=== PATIENT | male | born 1970 | race Asian ===

== ENCOUNTER 2018-10-25 12:15 | Emergency (ER) | payer BC ==
[2018-10-25 12:20] VITALS: BP 139/95
[2018-10-25] MEDS ORDERED: LIDOCAINE-EPINEPH-TETRACAINE 3 ML SYRINGE TOP STA (12:33)
[2018-10-25] MEDS ORDERED: TETANUS/DIPHTHERIA/PERTUSSIS 0.5 ML SYRINGE IM ONE (12:38)
--- NOTE | 2018-10-25 13:23 | ED Physician Documentation ---
History of Present Illness - Stated complaint Stated Complaint: CHIN LAC - Chief complaint Chief Complaint: Laceration - History obtained from History obtained from: Patient - History of Present Illness Timing: Today Pain level max: 3 Pain level now: 1 Improved by: nothing Worsened by: nothing - Additonal information Additional information: patient was running and fell and lacerated his chin. no neck or back pain. no fevers. no LOC. no headache. Review of Systems Constitutional: denies: Fever, Chills Respiratory: denies: Cough GI: denies: Vomiting, Diarrhea Skin: denies: Rash Musculoskeletal: denies: Neck pain, Back pain Neurologic: denies: Headache PD PAST MEDICAL HISTORY - Past Medical History Past Medical History: No - Past Surgical History Past Surgical History: No - Allergies Allergies/Adverse Reactions: Allergies Allergy/AdvReac Type Severity Reaction Status Date / Time No Known Drug Allergies Allergy Verified 10/25/18 12:20 - Living Situation Living Situation: reports: With family Living Arrangement: reports: At home PD ED PE NORMAL - Vitals Vital signs reviewed: Yes - General General: Alert and oriented X 3, No acute distress, Well developed/nourished - HEENT HEENT: PERRL, Moist mucous membranes, Other (2 cm, linear laceration to the underside of the chin. Neurovascularly intact. No scalp hematomas or palpable skull fractures. 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, No motor deficit, No sensory deficit, Normal speech - Psych Psych: Normal mood, Normal affect Results - Vitals Vitals: Vital Signs - 24 hr 10/25/18 12:17 Temperature 36.1 C L Heart Rate 90 Respiratory 15 Rate Blood Pressure 139/95 H O2 Saturation 99 Oxygen O2 Source Room air Procedures - Laceration (location) Chin Length in cm: 2 Wound type: Linear, Clean Neurovascular status: Sensory intact, Motor intact, Vascular intact Anesthesia: LET Wound Preparation: Irrigated copiously NS, Wound explored, To the base, FB removed (Small amounts of gravel removed) Skin layer closure: Dermabond Other: Patient tolerated well, No complications, Neurovascular intact, Tetanus booster given (Tdap) Complexity: Simple PD MEDICAL DECISION MAKING - ED course Complexity details: considered differential, d/w patient ED course: Patient with a chin laceration. Dermabond used to repair the wound. Warnings of infection and instructions on wound care given at bedside. Also counseled on how to minimize scarring. Patient counseled regarding signs and symptoms for which I believe and urgent re-evaluation would be necessary. Patient with good understanding of and agreement to plan and is comfortable going home at this time This document was made in part using voice recognition software. While efforts are made to proofread this document, sound alike and grammatical errors may occur. Departure - Departure Disposition: 01 Home, Self Care Clinical Impression: Laceration of chin Qualifiers: Encounter type: initial encounter Qualified Code(s): S01.81XA - Laceration without foreign body of other part of head, initial encounter Condition: Good Instructions: ED Laceration Facial Skin Glue Follow-Up: your,doctor in 1 week for wound check [Other] Comments: Return if you notice redness, swelling or drainage from the wound. Follow-up with your doctor for a wound check within 1 week. The glue will dissolve on its own. Do not apply antibiotic ointment or other ointments as they may dissolve the glue. Discharge Date/Time: 10/25/18 13:41
== END 2018-10-25 13:41 | disposition home or self-care (01) ==
LOC: ED 12:15
DX: S01.81XA Laceration without foreign body of other part of head, initial encounter (principal); W01.0XXA Fall on same level from slipping, tripping and stumbling without subsequent striking against object, initial encounter; Y93.02 Activity, running; Z23 Encounter for immunization
CPT/HCPCS: 12011; 90471